=== PATIENT | female | born 1970 | race African-American/Black ===

== ENCOUNTER 2024-11-22 18:18 | Emergency (ER) | payer MEDICAID, OTHER, SELFPAY ==
[2024-11-22] MEDS ORDERED: Boostrix 0.5 ML (Tdap) VIAL (>/=7 yrs of age) ONE (19:01)
== END 2024-11-22 19:27 | disposition home or self-care (01) ==
LOC: CSHERS 18:18
DX: S81.851A Open bite, right lower leg, initial encounter (principal); Z23 Encounter for immunization; W54.0XXA Bitten by dog, initial encounter
CPT/HCPCS: 90471; 90715